=== PATIENT | female | born 1995 ===

== ENCOUNTER 2018-03-02 09:22 | Emergency (ER) | payer OTHER ==
[2018-03-02 09:25] VITALS: BMI 45.5
[2018-03-02 09:27] VITALS: PULSE 84
--- NOTE | 2018-03-02 10:42 | ED PDOC ---
HPI: General Adult Time Seen by Provider: 03/02/18 10:02 Chief Complaint (Provider): Left thumb injury History Per: Patient History/Exam Limitations: no limitations Onset/Duration Of Symptoms: Days (1 (> 24 hours)) Have you had recent travel within the past 21 days to any of the following countries: [place], [place], [place] or [place]?: No Current Symptoms Are (Timing): Still Present Additional Complaint(s): 22 yo male with no medical problems presents with left thumb pain since 8am yesterday. Pt states she closed the car door on her finger. Pt reports pain. States pain is localized. Pt states that she took motrin this morning but it did not help. Pt denies numbness/tingling. Past Medical History Reviewed: Historical Data, Nursing Documentation, Vital Signs Vital Signs: Last Vital Signs Temp 98.3 F 03/02/18 09:26 Pulse 84 03/02/18 09:26 Resp 17 03/02/18 09:26 BP 120/81 03/02/18 09:26 Pulse Ox 99 03/02/18 10:44 - Medical History PMH: No Chronic Diseases - Surgical History Surgical History: No Surg Hx - Family History Family History: States: No Known Family Hx - Living Arrangements Living Arrangements: With Family - Social History Current smoker - smoking cessation education provided: No Alcohol: None Drugs: Denies - Allergies Allergies/Adverse Reactions: Allergies Allergy/AdvReac Type Severity Reaction Status Date / Time No Known Allergies Allergy Verified 04/15/14 21:49 Review of Systems ROS Statement: Except As Marked, All Systems Reviewed And Found Negative Constitutional: Negative for: Fever, Chills Skin: Positive for: Other Physical Exam - Reviewed Nursing Documentation Reviewed: Yes Vital Signs Reviewed: Yes - Physical Exam Appears: Positive for: Well, Non-toxic, No Acute Distress Head Exam: Positive for: ATRAUMATIC, NORMAL INSPECTION, NORMOCEPHALIC Skin: Positive for: Warm. Negative for: Normal Color (ecchymosis of the left thumb nail) Eye Exam: Positive for: Normal appearance ENT: Positive for: Normal ENT Inspection Neck: Positive for: Normal Respiratory: Negative for: Accessory Muscle Use, Respiratory Distress Back: Positive for: Normal Inspection Extremity: Positive for: Normal ROM, Tenderness (distal left thumb ) Neurologic/Psych: Positive for: Alert, Oriented - ECG O2 Sat by Pulse Oximetry: 99 Medical Decision Making Medical Decision Making: XR without fracture. Disposition - Clinical Impression Clinical Impression: Subungual hematoma of finger - Patient ED Disposition Is Patient to be Admitted: No - Disposition Disposition: Routine/Home Disposition Time: 10:45 Condition: STABLE Instructions: Common Finger Injuries (DC)
--- NOTE | 2018-03-02 11:37 | RAD ---
Date of service: 03/02/2018 PROCEDURE: Left Thumb radiographs. HISTORY: thumb injury, car door COMPARISON: None. TECHNIQUE: AP radiograph of the left hand, as well as spot oblique and lateral images of thumb were obtained. FINDINGS: LEFT THUMB: Normal left thumb, without fracture or focal lesion. Remainder of the left hand (as seen on the AP view) grossly unremarkable. JOINTS: Normal. SOFT TISSUES: Normal. OTHER FINDINGS: None. IMPRESSION: No demonstrated fracture or dislocation.
[2018-03-02 12:55] VITALS: BP 131/69; RESP 15; TEMP 98.1; O2SAT 100
== END 2018-03-02 13:00 | disposition home or self-care (01) ==
LOC: H.ER 09:22
DX: S60.012A Contusion of left thumb without damage to nail, initial encounter (principal); W23.0XXA Caught, crushed, jammed, or pinched between moving objects, initial encounter; Y92.9 Unspecified place or not applicable

== ENCOUNTER 2018-10-22 23:35 | Emergency (ER) | payer SELFPAY ==
[2018-10-22 23:35] VITALS: BMI 45.5
[2018-10-22 23:55] VITALS: RESP 18
--- NOTE | 2018-10-23 01:29 | ED PDOC ---
HPI: CCC, URI, Sore Throat Time Seen by Provider: 10/23/18 00:04 Chief Complaint (Nursing): Cough, Cold, Congestion Chief Complaint (Provider): Fever, Cough History Per: Patient History/Exam Limitations: no limitations Onset/Duration Of Symptoms: Days (3) Current Symptoms Are (Timing): Intermittent Episodes Associated Symptoms: Cough, Vomiting Additional Complaint(s): 23 year old female presents to the ED complaining of fever onset for 3 days. Patient reports she has ongoing flu-like symptoms onset for one month. She took Tylenol and Theraflu with relief. On Monday, she had recurrent of symptoms with dry cough and malaise. She also reports of non-bilious and non-bloody vomiting. She states she smokes a cigarette a month. Otherwise, she denies diarrhea. PMD: no family provider Past Medical History Reviewed: Historical Data, Nursing Documentation, Vital Signs Vital Signs: Last Vital Signs Temp 98.1 F 10/22/18 23:49 Pulse 116 H 10/22/18 23:49 Resp 18 10/22/18 23:49 BP 130/80 10/22/18 23:49 Pulse Ox 99 10/22/18 23:49 - Medical History PMH: No Chronic Diseases - Surgical History Surgical History: No Surg Hx - Family History Family History: States: Unknown Family Hx - Social History Current smoker - smoking cessation education provided: Yes (smokes a cigarette a month) Alcohol: None Drugs: Denies - Home Medications Home Medications: Ambulatory Orders Medication Instructions Recorded Azithromycin [Zithromax] 250 mg PO QAM #1 pkg 10/23/18 Benzonatate [Tessalon Perle] 100 mg PO TID PRN #15 capsule 10/23/18 - Allergies Allergies/Adverse Reactions: Allergies Allergy/AdvReac Type Severity Reaction Status Date / Time No Known Allergies Allergy Verified 04/15/14 21:49 Review of Systems ROS Statement: Except As Marked, All Systems Reviewed And Found Negative Constitutional: Positive for: Fever, Malaise Respiratory: Positive for: Cough (dry) Gastrointestinal: Positive for: Vomiting (non-bilious and non-bloody). Negative for: Diarrhea Physical Exam - Reviewed Nursing Documentation Reviewed: Yes Vital Signs Reviewed: Yes - Physical Exam Appears: Positive for: Well, Non-toxic, No Acute Distress Head Exam: Positive for: ATRAUMATIC, NORMAL INSPECTION, NORMOCEPHALIC Skin: Positive for: Normal Color, Warm, Dry. Negative for: Rash Eye Exam: Positive for: EOMI, Normal appearance, PERRL ENT: Positive for: Normal ENT Inspection Neck: Positive for: Normal, Painless ROM Cardiovascular/Chest: Positive for: Regular Rate, Rhythm. Negative for: Murmur Respiratory: Positive for: Normal Breath Sounds. Negative for: Decreased Breath Sounds, Respiratory Distress Gastrointestinal/Abdominal: Positive for: Normal Exam, Soft. Negative for: Ten derness Back: Positive for: Normal Inspection Extremity: Positive for: Normal ROM. Negative for: Tenderness, Pedal Edema, Deformity Neurologic/Psych: Positive for: Alert, Oriented (x3) - ECG O2 Sat by Pulse Oximetry: 99 (RA) Pulse Ox Interpretation: Normal Medical Decision Making Medical Decision Makin Impression: 23 year old female presenting with URI Plan: --Urine --ED urine dipstick --Chest two views [RAD] -- Acetaminophen 975mg --Urinalysis --Reevaluation 0408 Labs reviewed and revealed no clinically significant abnormalities. Will treat with underline bronchitis given the symptoms. Upon provider reevaluation patient is feeling better, is medically stable, and requires no further treatment in the ED at this time. Patient will be discharged with Zithromax 250mg and Tessalon Perke 100mg . Counseling was provided and all questions were answered regarding diagnosis. There is agreement to discharge plan. Return if symptoms persist or worsen. Scribe Attestation: Documented by Say Villalta, acting as a scribe for Beau Iverson MD Provider Scribe Attestation: All medical record entries made by the Scribe were at my direction and personally dictated by me. I have reviewed the chart and agree that the record accurately reflects my personal performance of the history, physical exam, medical decision making, and the department course for this patient. I have also personally directed, reviewed, and agree with the discharge instructions and disposition. Disposition - Clinical Impression Clinical Impression: Bronchitis - Patient ED Disposition Is Patient to be Admitted: No - Disposition Disposition: Routine/Home Disposition Time: 04:08 Condition: STABLE Prescriptions: Azithromycin [Zithromax] 250 mg PO QAM #1 pkg Benzonatate [Tessalon Perle] 100 mg PO TID PRN #15 capsule PRN Reason: Cough Instructions: Acute Bronchitis Forms: [facility] (Latvian) Print Language: LITHUANIAN
[2018-10-23 03:00] LABS: SQUAMOUS EPITHIAL 4 /hpf (0-5); URINE BILIRUBIN NEGATIVE (NEGATIVE); URINE BLOOD SMALL (NEGATIVE); URINE CLARITY SLIGHTY-CLOUDY (Clear); URINE COLOR YELLOW (YELLOW); URINE GLUCOSE (UA) NEG (NEGATIVE); URINE LEUKOCYTE ESTERASE NEG Leu/uL (Negative); URINE PROTEIN 30 mg/dL (NEGATIVE); URINE UROBILINOGEN 0.2-1.0 mg/dL (0.2-1.0)
[2018-10-23 04:09] VITALS: BP 118/71; PULSE 92; TEMP 97.8
[2018-10-23 04:10] VITALS: O2SAT 99
--- NOTE | 2018-10-23 08:47 | RAD ---
Date of service: 10/23/2018 HISTORY: admit COMPARISON: No prior. TECHNIQUE: Chest PA and lateral FINDINGS: LUNGS: No active pulmonary disease. PLEURA: No significant pleural effusion identified. No pneumothorax apparent. CARDIOVASCULAR: No aortic atherosclerotic calcification present. Normal cardiac size. No pulmonary vascular congestion. OSSEOUS STRUCTURES: No significant abnormalities. VISUALIZED UPPER ABDOMEN: Normal. OTHER FINDINGS: None. IMPRESSION: No acute cardiopulmonary disease appreciated.
== END 2018-10-23 04:09 | disposition home or self-care (01) ==
LOC: H.ER 23:35
DX: J40 Bronchitis, not specified as acute or chronic (principal); F17.210 Nicotine dependence, cigarettes, uncomplicated